=== PATIENT | male | born 1955 | race Caucasian/White ===

== ENCOUNTER 2017-08-29 10:06 | Outpatient (CLI) | payer OTHER ==
[2017-08-29 11:27] LABS: Hematocrit 44.8 % (42.0-52.0); Red Blood Cell (RBC) Count 4.88 mill/uL (4.70-6.10); White Blood Cell (WBC) Count 4.9 thou/uL (4.8-10.8)
[2017-08-29 11:34] LABS: Prothrombin Time 13.7 SEC (12.0-14.7)
[2017-08-29 11:52] LABS: Anion Gap 13 mmol/L (10-20); BUN (Urea Nitrogen) 12 mg/dL (8.4-25.7); Calc. Creatinine Clearance 0 mL/min (70-130); Calcium 9.7 mg/dL (7.8-10.44); Carbon Dioxide 26 mmol/L (23-31); Chloride 102 mmol/L (98-107); Estimated GFR-MDRD 84
--- NOTE | 2017-08-29 12:41 | EKG ---
Test Reason : Blood Pressure : / mmHG Vent. Rate : 079 BPM Atrial Rate : 079 BPM P-R Int : 194 ms QRS Dur : 086 ms QT Int : 384 ms P-R-T Axes : 008 033 005 degrees QTc Int : 440 ms Normal sinus rhythm Possible Inferior infarct , age undetermined Abnormal ECG No previous ECGs available Confirmed by DR. Johnathan JOHNSON ([id number]) on 08/29/2017 12:41:08 PM Referred By: AROLDO Confirmed By:DR. Johnathan JOHNSON
== END 2017-08-29 10:07 | disposition home or self-care (01) ==
LOC: LABBT 10:06
PROVIDERS: ATTEND Surgery
DX: Z01.818 Encounter for other preprocedural examination (principal); M48.061 Spinal stenosis, lumbar region without neurogenic claudication; M54.16 Radiculopathy, lumbar region; M71.30 Other bursal cyst, unspecified site
CPT/HCPCS: 80048; 85027; 85610; 85730; 93005; 93010

== ENCOUNTER 2017-09-06 11:06 | Day surgery (SDC) | payer OTHER ==
[2017-08-29 10:41] VITALS: BMI 29.2
[2017-09-06] MEDS ORDERED: Midazolam HCl 2 mg/2 ml Vial ONE (12:41)
[2017-09-06] MEDS ORDERED: Fentanyl 250 MCG/5 ML VIAL ONE ×2 (12:53→14:26)
[2017-09-06] MEDS ORDERED: Ketorolac Tromethamine 30 MG/ML VIAL ONE (13:12)
[2017-09-06] MEDS ORDERED: Lidocaine 1% PF 5 ML VIAL ONE (13:12)
[2017-09-06] MEDS ORDERED: Glycopyrrolate 0.2 MG/ML 5 ML SYRINGE ONE (13:12)
[2017-09-06] MEDS ORDERED: Dexamethasone 20 MG/5 ML VIAL ONE (13:12)
[2017-09-06] MEDS ORDERED: PROPOFOL 200 MG/20 ML VIAL ONE (13:12)
[2017-09-06] MEDS ORDERED: Ondansetron HCl/PF 4 MG/2 ML Vial ONE (13:12)
[2017-09-06] MEDS ORDERED: CEFAZOLIN/Water 2 GM/20 ML SYRINGE ONE (13:19)
[2017-09-06] MEDS ORDERED: Bacitracin Zinc Ointment 30 gm TUBE ONE (14:17)
[2017-09-06] MEDS ORDERED: Thrombin 5000 UNITS/5 ML VIAL ONE ×2 (14:17→16:41)
[2017-09-06] MEDS ORDERED: Sodium Chloride 0.9% 10 ML ONE (14:18)
[2017-09-06] MEDS ORDERED: Fentanyl 100 MCG/2 ML VIAL ONE ×3 (14:19→18:43)
[2017-09-06] MEDS ORDERED: Acetaminophen/Codeine 30-300mg Tablet PO PRN (17:12)
[2017-09-06] MEDS ORDERED: Mag-Al 1200 mg/1200 mg/30 ML UDCUP PO PRN (17:12)
[2017-09-06] MEDS ORDERED: tiZANidine HCl 4 MG TAB PO PRN (17:12)
[2017-09-06] MEDS ORDERED: Bisacodyl 10 MG SUPP PR PRN (17:12)
[2017-09-06] MEDS ORDERED: Acetaminophen 325 MG TAB PO PRN (17:12)
[2017-09-06] MEDS ORDERED: Ondansetron HCl/PF 4 MG/2 ML Vial IVP PRN ×2 (17:12→17:58)
[2017-09-06] MEDS ORDERED: Milk Of Magnesia 30 ML UDCUP PO PRN (17:12)
[2017-09-06] MEDS ORDERED: Promethazine HCl 25 MG/ML VIAL IM PRN (17:12)
[2017-09-06] MEDS ORDERED: traMADol HCl 50 MG TAB PO PRN (17:12)
[2017-09-06] MEDS ORDERED: Fleet Enema 133 ML BOT PR PRN (17:12)
[2017-09-06] MEDS ORDERED: HYDROcodone/Acetaminophen 7.5/325 mg Tablet PO PRN (17:12)
[2017-09-06] MEDS ORDERED: HYDROmorphone 0.5 MG/0.5 ML SYRINGE ONE (17:27)
[2017-09-06] MEDS ORDERED: HYDROmorphone 2 MG/ML VIAL SLOW IVP PRN (17:58)
[2017-09-06] MEDS ORDERED: Promethazine HCl 25 MG/ML VIAL IM/IV PRN (17:58)
[2017-09-06] MEDS: Sodium Chloride 0.9% 1,000 ML IV SCH (21:20)
[2017-09-06] MEDS: CEFAZOLIN/Water 2 GM/20 ML SYRINGE SLOW IVP SCH (21:21)
[2017-09-06] MEDS: AMOXicillin 250 MG CAP PO SCH (22:15)
[2017-09-07] MEDS: CEFAZOLIN/Water 2 GM/20 ML SYRINGE SLOW IVP SCH (05:57)
[2017-09-07] MEDS: Sodium Chloride 0.9% 1,000 ML IV SCH (06:04)
[2017-09-07 08:26] VITALS: BP 132/72; TEMP 98.2
--- NOTE | 2017-09-07 08:46 | PRG ---
DATE OF SERVICE: 09/07/2017 SUBJECTIVE: Mr. Kat is postoperative day 1 from L3-L4 synovial cyst removal and L4-L5 laminectom y for decompression. He is doing well with improvement in his leg pain. He is mobilizing and voidin g on his own. We went over intraoperative and postoperative issues and we will plan for dismissal to day.
[2017-09-07] MEDS ORDERED: Multivit, Therapeutic 1 TAB PO SCH (09:00)
--- NOTE | 2017-09-07 09:06 | OP ---
DATE OF PROCEDURE: 09/06/2017 OR: OR #12 WOUND TYPE: Type 1 wound. SURGEON: Jose Malik M.D. TOOLROOM KEEPER: Constantine Stewart PA-C PREPROCEDURE DIAGNOSES: L3-L4 synovial cyst and L4-L5 stenosis with low back and leg pain. PROCEDURE: 1. L3-L4 synovial cyst removal. 2. L4-L5 laminectomy, partial facetectomy, and foraminotomies. DESCRIPTION OF PROCEDURE: After informed consent was obtained from the patient, the patient brought to OR 12. Proper patient pause and identification was carried out. He was placed prone on the opera ting room table. All appropriate points were padded. We identified the L3, L4, L5 dorsal spines. A linear yoel was made over this region. This area was sterilely cleansed, prepared, and draped. Pro per patient pause and identification was carried out. The wound was then opened with a combination o f sharp, monopolar and blunt dissection and we exposed the L3, L4, L5 dorsal spines and lamina. A lo calization film confirmed our area of interest. We then performed an L3-L4 laminectomy for decompres rufina and removal of the synovial cyst. The synovial cyst was evident both on the left and the right side and was removed. We then turned our attention to laminectomy at L4-L5, partial facetectomy and foraminotomies. This was performed, at the conclusion we had excellent decompression of the L3, L4, L5 nerve roots bilaterally and the common dural tube. Copious irrigation occurred throughout. Hemos tasis was maximized. The wound was then closed in anatomic layers. I should note there was no CSF l eak. The patient then emerged from anesthesia.
[2017-09-07] MEDS: AMOXicillin 250 MG CAP PO SCH (10:57)
== END 2017-09-07 10:55 | disposition home or self-care (01) ==
LOC: SDC 11:06 → SURG A 19:02 → SDC 09-07 10:55
PROVIDERS: ATTEND Surgery
PROC: 00BY0ZZ Excision of Lumbar Spinal Cord, Open Approach (ICD-10-PCS; principal; 2017-09-06)
PROC: 01NB0ZZ Release Lumbar Nerve, Open Approach (ICD-10-PCS; 2017-09-06)
DX: M71.38 Other bursal cyst, other site (principal); M48.061 Spinal stenosis, lumbar region without neurogenic claudication; E78.5 Hyperlipidemia, unspecified; Z79.2 Long term (current) use of antibiotics; Z79.899 Other long term (current) drug therapy; Z98.890 Other specified postprocedural states
CPT/HCPCS: 76001; 96374; A4216; J0131; J1100; J1170; J1885; J2001; J2250; J2405; J2704; J3010; J3370; J3490

== ENCOUNTER 2021-04-22 08:09 | Outpatient (CLI) | payer MEDICARE, OTHER | END 2021-04-22 08:10 | disposition home or self-care (01) | LOC: PET 08:09 | PROVIDERS: ATTEND Radiology Radiation Oncology | DX: C01 Malignant neoplasm of base of tongue (principal) | CPT/HCPCS: 78815; A9552 ==

== ENCOUNTER 2021-04-27 08:52 | Outpatient (CLI) | payer MEDICARE, OTHER | END 2021-04-27 08:53 | disposition home or self-care (01) | PROVIDERS: ATTEND Radiology Radiation Oncology | DX: C01 Malignant neoplasm of base of tongue (principal); R13.13 Dysphagia, pharyngeal phase; R63.3 Feeding difficulties | CPT/HCPCS: 74230 ==

== ENCOUNTER 2021-08-30 08:13 | Outpatient (CLI) | payer MEDICARE, OTHER | END 2021-08-30 08:14 | disposition home or self-care (01) | LOC: PET 08:13 | PROVIDERS: ATTEND Internal Medicine Hematology & Oncology | DX: C09.8 Malignant neoplasm of overlapping sites of tonsil (principal) | CPT/HCPCS: 78815; A9552 ==

== ENCOUNTER 2025-08-24 09:06 | Outpatient (CLI) | payer MEDICARE | END 2025-08-24 09:07 | disposition home or self-care (01) | LOC: SCSMRI 09:06 | PROVIDERS: ATTEND Family Medicine Sports Medicine | DX: M25.511 Pain in right shoulder (principal); M75.111 Incomplete rotator cuff tear or rupture of right shoulder, not specified as traumatic ==